=== PATIENT | female | born 1935 | race Caucasian/White ===

== ENCOUNTER 2016-10-04 10:46 | Outpatient (CLI) | payer OTHER ==
--- NOTE | 2016-10-04 13:18 | DIAGNOSTIC IMAGING REPORT ---
PROCEDURE: MG BILATERAL DIAGNOSTIC W/CAD INDICATION: Painful palpable area right upper breast/axilla. TECHNIQUE: CC and MLO digital views of each breast with true-lateral and exaggerated CC digital view of the right breast. In addition, spot compression CC and MLO views were obtained of the right upper breast/axilla breast (region of clinical concern). Finally, high-resolution right breast ultrasound was performed (18 mHz). COMPARISON: Comparison is made to screening mammogram studies on 10/27/2015, 05/26/2014, and 07/03/2010. FINDINGS: MAMMOGRAM: Computer-aided detection applied. Minimally dense. No evidence of mass or suspicious calcification. BREAST ULTRASOUND: Normal parenchyma. No evidence of mass or cyst. IMPRESSION: 1. Negative mammogram and negative right breast ultrasound. 2. Findings discussed with the patient. 3. Resume routine screening schedule (October 2017). RESULT CODE: 1- Negative. A. A negative report should not delay biopsy if a dominant or clinically suspicious mass is present. 10-15% of cancers are not identified by x-ray. B. A negative report may reinforce clinical impression. C. Adenosis and dense breasts may obscure an underlying neoplasm. D. False positive reports average 6-10%. E.. A yearly screening mammogram is recommended. A reminder letter will be scheduled.
[2016-10-18] MEDS ORDERED: LEVO-T25 MCG (16:12)
[2016-10-18] MEDS ORDERED: LEVOTHYROXINE100 MCG PO (16:12)
[2016-10-18] MEDS ORDERED: FOLIC ACID1 MG PO (16:12)
[2016-10-18] MEDS ORDERED: RAMIPRIL2.5 MG PO (16:13)
[2016-10-18] MEDS ORDERED: MAGNESIUM400 M1 PO (16:13)
[2016-10-18] MEDS ORDERED: VITAMIN D-31000 UNIT PO (16:15)
[2016-10-18] MEDS ORDERED: DETROL LA2 MG PO (16:15)
[2016-10-18] MEDS ORDERED: TRAMADOL HCL50 MG PO (16:15)
[2016-10-18] MEDS ORDERED: ASCORBIC ACID500 MG PO (16:16)
[2016-10-18] MEDS ORDERED: PRADAXA150 M1 PO (16:17)
[2016-10-18] MEDS ORDERED: ENBREL50 MG/ML PO (16:23)
[2016-10-18] MEDS ORDERED: CARDIZEM CD PO (16:23)
[2016-10-18] MEDS ORDERED: ZETIA10 MG PO (16:24)
[2016-10-18] MEDS ORDERED: CVS ACID CONTRO20 MG PO (16:29)
[2016-10-18] MEDS ORDERED: FLUTICASONE PR50 MCG (16:29)
[2016-10-18] MEDS ORDERED: FORTEO SC (16:36)
[2016-10-23] MEDS ORDERED: NORCO1 TA1 PO (08:33)
[2016-11-06] MEDS ORDERED: MULTIPLE VITAMIN PO (12:01)
[2016-11-06] MEDS ORDERED: TRAMADOL HCL50 MG PO (12:02)
== END 2016-10-04 23:00 ==
LOC: MAM SRH 10:46
DX: N64.4 Mastodynia (principal); N63 Unspecified lump in breast

== ENCOUNTER 2016-10-17 10:18 | Outpatient (CLI) | payer OTHER ==
--- NOTE | 2016-10-18 14:17 | DIAGNOSTIC IMAGING REPORT ---
PROCEDURE: XR BARIUM SWALLOW INDICATION: PHARYNOGOESOPHAGEAL DYSPHAGIA TECHNIQUE: Double contrast study. Fluoroscopy time, 3.5 minutes; 1686.25 mGy. 111 fluoroscopic images (including cine fluoroscopy of the esophagus). COMPARISON: None. FINDINGS: Pharyngoesophagus demonstrates trace aspiration with thin liquids. The rest of the pharyngoesophagus is normal. No constricting or polypoid lesions are identified. There is a moderate gastroesophageal reflux. There is generalized narrowing of the gastroesophageal junction (4 mm) with mild ectasia of the thoracic esophagus. Findings are associated with mild delay in emptying of the esophagus. No polypoid lesions are identified. IMPRESSION: 1. Trace aspiration with thin liquids (suggest mild pharyngoesophageal dysfunction). 2. Moderate gastroesophageal reflux. 3. Mild ectasia of the thoracic esophagus with narrowing of the gastroesophageal junction (4 mm). Associated mild delay in emptying of the esophagus. Findings suggest reflux esophageal stricture (versus achalasia).
[2016-10-18] MEDS ORDERED: LEVOTHYROXINE100 MCG PO (16:12)
[2016-10-18] MEDS ORDERED: FOLIC ACID1 MG PO (16:12)
[2016-10-18] MEDS ORDERED: LEVO-T25 MCG (16:12)
[2016-10-18] MEDS ORDERED: RAMIPRIL2.5 MG PO (16:13)
[2016-10-18] MEDS ORDERED: MAGNESIUM400 M1 PO (16:13)
[2016-10-18] MEDS ORDERED: VITAMIN D-31000 UNIT PO (16:15)
[2016-10-18] MEDS ORDERED: TRAMADOL HCL50 MG PO (16:15)
[2016-10-18] MEDS ORDERED: DETROL LA2 MG PO (16:15)
[2016-10-18] MEDS ORDERED: ASCORBIC ACID500 MG PO (16:16)
[2016-10-18] MEDS ORDERED: PRADAXA150 M1 PO (16:17)
[2016-10-18] MEDS ORDERED: CARDIZEM CD PO (16:23)
[2016-10-18] MEDS ORDERED: ENBREL50 MG/ML PO (16:23)
[2016-10-18] MEDS ORDERED: ZETIA10 MG PO (16:24)
[2016-10-18] MEDS ORDERED: CVS ACID CONTRO20 MG PO (16:29)
[2016-10-18] MEDS ORDERED: FLUTICASONE PR50 MCG (16:29)
[2016-10-18] MEDS ORDERED: FORTEO SC (16:36)
[2016-10-23] MEDS ORDERED: NORCO1 TA1 PO (08:33)
[2016-11-06] MEDS ORDERED: MULTIPLE VITAMIN PO (12:01)
[2016-11-06] MEDS ORDERED: TRAMADOL HCL50 MG PO (12:02)
== END 2016-10-17 23:00 ==
LOC: XR SRH 10:18
DX: K21.9 Gastro-esophageal reflux disease without esophagitis (principal)

== ENCOUNTER 2016-11-08 05:54 | Day surgery (SDC) | payer OTHER ==
[~2016-11-08] VITALS: Ht 162.6 cm; Wt 78.0 kg
[~2016-11-08 05:54] MED LIST: ASCORBIC ACID500 MG PO; CARDIZEM CD PO; CVS ACID CONTRO20 MG PO; DETROL LA2 MG PO; ENBREL50 MG/ML PO; FLUTICASONE PR50 MCG; FOLIC ACID1 MG PO; FORTEO SC; LEVO-T25 MCG; LEVOTHYROXINE100 MCG PO; MAGNESIUM400 M1 PO; MULTIPLE VITAMIN PO; NORCO1 TA1 PO; PRADAXA150 M1 PO; RAMIPRIL2.5 MG PO; TRAMADOL HCL50 MG PO; VITAMIN D-31000 UNIT PO; ZETIA10 MG PO
--- NOTE | 2016-11-08 09:11 | DIAGNOSTIC IMAGING REPORT ---
PROCEDURE: XR INTRAOPERATIVE LAP KM INDICATION: CHOLECYSTITIS TECHNIQUE: Study performed and contrast injected by Dr. Jeong. Fluoroscopy time 0.8 minutes (3.3 mGy). COMPARISON: None. FINDINGS: AP C-arm view. Common duct is normal and there is no evidence of obstruction. IMPRESSION: 1. Negative intraoperative cholangiogram.
[2016-11-08] MEDS ORDERED: NORCO1 TA1 PO (09:21)
--- NOTE | 2016-11-08 09:22 | Provider's Discharge Care Plan ---
Problem, Goal, Plan Problem List 1. S/P laparoscopic cholecystectomy
--- NOTE | 2016-11-08 09:22 | Provider's Discharge Care Plan ---
Problem, Goal, Plan Problem List 1. S/P laparoscopic cholecystectomy
--- NOTE | 2016-11-08 10:07 | OPERATIVE REPORT ---
DATE OF SURGERY: 11/08/2016 SURGEON: Geraldo Jeong MD PREOPERATIVE DIAGNOSES: 1. Cholelithiasis with chronic cholecystitis 2. Dysphagia and esophageal stricture POSTOPERATIVE DIAGNOSES: 1. Cholelithiasis with chronic cholecystitis 2. Liver cirrhosis 3. Esophageal stenosis PROCEDURES PERFORMED: 1. Laparoscopic cholecystectomy and cholangiography 2. Needle biopsy of liver 3. Esophagogastroduodenoscopy with biopsy and balloon dilation ANESTHESIA: Total IV general. INDICATIONS: The patient is a 81-year-old woman with a history of epigastric abdominal pain and a finding of cholelithiasis. She has dysphagia but without weight loss, and an upper GI showed narrowing in the distal esophagus. SURGICAL TECHNIQUE: The patient was taken to the operating room, where a general anesthetic was administered and the patient prepped and draped in the usual sterile fashion. An orogastric tube, IV antibiotics, and sequential compression devices were in place. After sterile prep and drape, a local anesthetic of 0.5% Marcaine with epinephrine was infiltrated at each of the trocar sites. An intraumbilical incision was first made and a Veress needle used to insufflate. A 10 mm trocar was passed, and 3 additional trocars were placed in the usual location. The liver was visualized and appeared to demonstrate micronodular cirrhosis. Liver was small and contracted. There was no portal hypertension seen in the falciform ligament. There was no significant ascites. The gallbladder was elevated and found to be soft and not acutely inflamed. The neck of the gallbladder was fully dissected and a clip was placed. A fluoroscopic cholangiogram was carried out which demonstrated free flow into the duodenum and no filling defects. The cystic duct and cystic artery were both clipped and divided, and the gallbladder stripped from the gallbladder fossa using electrocautery. It was delivered to the upper midline trocar site where it was suctioned free of contents and removed. A 14 gauge spring-loaded biopsy needle was inserted and used to take several core specimens from the liver. This required a puncture higher up on the abdomen in order to reach the liver without compromising the needle, since the liver was tucked up pretty high under the ribs. Specimens were submitted and irrigation was done with local with epinephrine, and pressure was held with a blunt instrument until hemostasis was complete. After irrigation and suction, additional Marcaine was instilled. Gas was evacuated and the midline trocar sites closed with interrupted subcuticular 4-0 Vicryl suture. Steri-Strips and dressings were placed at all sites. With the patient still asleep, the upper GI endoscope was inserted. It went down at the lower esophagus. There was a fusiform narrowing in the lower esophagus, but not actually at the gastroesophageal junction. There was no tumor or obvious web-like stricture. This had more the extrinsic appearance of achalasia or muscular spasm. The endoscope was inserted into the stomach and duodenum. On withdrawal, a single biopsy was taken for Helicobacter testing from the antrum of the stomach. An 15-18 variable diameter dilating balloon was inserted. It was positioned across the gastroesophageal junction and inflated without any resistance. When the full balloon was withdrawn just a few centimeters up, it hung up at the area of what appeared to be an extrinsic narrowing, possibly a muscular spasm or achalasia. The balloon was partially deflated and pulled back through this area and then inflated back up to 18 mm. The balloon was partially deflated and withdrawn, and there were no further lesions seen. In summary, this patient had the unexpected gross appearance of cirrhosis. In the esophagus, the patient had more the appearance of a muscular disorder extrinsic to the esophagus. If her dysphagia symptoms persist after dilation, then a manometry may be in order.
[2016-11-08 10:53] VITALS: BP 112/66
== END 2016-11-08 11:45 | disposition home or self-care (01) ==
LOC: OR SRH 05:54 → SCU SRH 06:05 → OR SRH 07:30
PROVIDERS: Surgery
PROC: 0FB03ZX Excision of Liver, Percutaneous Approach, Diagnostic (ICD-10-PCS; principal; 2016-11-08 07:30)
PROC: 0FT44ZZ Resection of Gallbladder, Percutaneous Endoscopic Approach (ICD-10-PCS; principal; 2016-11-08 07:30)
PROC: BF131ZZ Fluoroscopy of Gallbladder and Bile Ducts using Low Osmolar Contrast (ICD-10-PCS; principal; 2016-11-08 07:30)
PROC: 0DB68ZX Excision of Stomach, Via Natural or Artificial Opening Endoscopic, Diagnostic (ICD-10-PCS; principal; 2016-11-08 07:30)
PROC: 0D738ZZ Dilation of Lower Esophagus, Via Natural or Artificial Opening Endoscopic (ICD-10-PCS; principal; 2016-11-08 07:30)
DX: K80.10 Calculus of gallbladder with chronic cholecystitis without obstruction (principal); K22.2 Esophageal obstruction; K74.60 Unspecified cirrhosis of liver; E11.9 Type 2 diabetes mellitus without complications; Z79.84 Long term (current) use of oral hypoglycemic drugs; I10 Essential (primary) hypertension; Z79.01 Long term (current) use of anticoagulants; I48.91 Unspecified atrial fibrillation
CPT/HCPCS: 29240; 50002; 60001; 70002; 80102; 80212; 80248; 82669; 82730; 82794; 82807; 82943; 83339; 83348; 83421; 83526; 83587; 83920; 83937; 83982; 84038; 90705